=== PATIENT | male | born 1950 | race Caucasian/White ===

== ENCOUNTER 2023-05-30 20:10 | Inpatient (IN) | payer MEDICARE ==
[~2023-05-30] VITALS: Ht 170.2 cm; Wt 86.4 kg
[2023-05-30] VITALS (14 sets, daily range): BP systolic 113–138; BP diastolic 59–69
[2023-05-30 20:55] LABS: HEMOGLOBIN 15.6 g/dl (14.0-18.0); IMMATURE GRANULOCYTES 0.4 % (0.0-5.0); MEAN CELL VOLUME 90.7 fL CALC (80.0-100.0); MEAN CORPUSCULAR HGB 31.5 pG CALC (26.0-32.0); MEAN CORPUSCULAR HGB CONC 34.7 g/dL CAL (32.0-36.0); PLATELET COUNT 246 thou/uL (130-400); RED BLOOD COUNT 4.96 mill/uL (4.70-6.10); RED CELL DISTRI WIDTH 12.8 % (11.5-15.5)
[2023-05-30 21:14] LABS: ALBUMIN 4.3 g/dL (3.2-5.0); ALKALINE PHOSPHATASE 103 u/l (38-126); ANION GAP 13 (6-22 (CALC)); BILIRUBIN, TOTAL 1.4 mg/dL (0.2-1.3); BUN 19 mg/dL (8-23); BUN/CREATININE RATIO 23 (12-20 (CALC)); CARBON DIOXIDE 28 mmol/l (22-30); CHLORIDE 97 mmol/l (95-108); CREATININE 0.8 mg/dL (0.7-1.3); GFR FOR AFR.AMER. > 60 ML/MIN (>=60 (CALC)); GFR OTHER RACES > 60 ML/MIN (>=60 (CALC)); POTASSIUM 3.6 mmol/l (3.5-5.1); SGOT/AST 56 u/l (19-48); SODIUM 135 mmol/l (137-146); TOTAL PROTEIN 7.4 g/dL (6.3-8.2)
[2023-05-30 21:19] LABS: BAND 9 % (0-8)
[2023-05-30 21:20] LABS: MANUAL DIFFERENTIAL YES
[2023-05-30 21:43] LABS: AMYLASE 4219 u/l (30-110)
[2023-05-30 22:03] LABS: LIPASE 53072 u/l (23-300)
[2023-05-30 22:49] LABS: URINE BILIRUBIN - DIPSTICK Negative (NEGATIVE); URINE BLOOD DIPSTICK Negative (NEGATIVE); URINE GLUCOSE - DIPSTICK >=1000 mg/dL (NEGATIVE); URINE KETONE 15 mg/dL (NEGATIVE); URINE LEUK ESTERASE Negative (NEGATIVE); URINE NITRITE - DIPSTICK Negative (Negative); URINE PROTEIN - DIPSTICK Negative (NEG-TRACE); URINE SPECIFIC GRAVITY <=1.005; URINE UROBILINOGEN - DIPSTICK 0.2 E.U./dL (0.2)
[2023-05-30 22:51] LABS: URINE COLOR Yellow
[2023-05-31] VITALS (22 sets, daily range): BP systolic 119–152; BP diastolic 63–76
[2023-05-31] MEDS ORDERED: HYDROCHLOROT25 MG PO (03:44)
[2023-05-31] MEDS ORDERED: ATORVASTATIN CA20 MG PO (03:45)
[2023-05-31] MEDS ORDERED: GLUCOTROL XL10 MG PO (03:45)
[2023-05-31] MEDS ORDERED: COZAAR100 MG PO (04:05)
[2023-05-31] MEDS ORDERED: LIPITOR10 M1 PO (04:05)
[2023-05-31] MEDS ORDERED: JARDIANCE25 MG PO (04:06)
[2023-05-31] MEDS ORDERED: AMLODIPINE BESY10 MG PO (04:07)
[2023-05-31 10:11] LABS: HEMATOCRIT 41.8 % (39.0-50.0); MEAN CELL VOLUME 93.9 fL CALC (80.0-100.0); MEAN CORPUSCULAR HGB 31.5 pG CALC (26.0-32.0); MEAN CORPUSCULAR HGB CONC 33.5 g/dL CAL (32.0-36.0); RED BLOOD COUNT 4.45 mill/uL (4.70-6.10)
[2023-05-31 10:23] LABS: ALBUMIN 3.4 g/dL (3.2-5.0); BILIRUBIN, TOTAL 0.7 mg/dL (0.2-1.3); TOTAL PROTEIN 5.8 g/dL (6.3-8.2)
[2023-05-31 10:54] LABS: INTERNATIONAL NORMALIZED RATIO 1.2 RATIO (0.7-1.3)
[2023-05-31 14:37] LABS: ALKALINE PHOSPHATASE 66 u/l (38-126); ANION GAP 8 (6-22 (CALC)); BILIRUBIN, TOTAL 0.7 mg/dL (0.2-1.3); BUN 16 mg/dL (8-23); BUN/CREATININE RATIO 23 (12-20 (CALC)); CALCULATED LDLCHOLESTEROL 20 mg/dL (62-129 (CALC)); CARBON DIOXIDE 25 mmol/l (22-30); CHOLESTEROL HDL RATIO 1.5 (<4.4 (CALC)); CREATININE 0.7 mg/dL (0.7-1.3); GFR FOR AFR.AMER. > 60 ML/MIN (>=60 (CALC)); GFR OTHER RACES > 60 ML/MIN (>=60 (CALC)); HDL CHOLESTEROL 55 mg/dL (39.0-59.0); POTASSIUM 3.3 mmol/l (3.5-5.1); SGOT/AST 40 u/l (19-48); SODIUM 139 mmol/l (137-146); TOTAL CHOLESTEROL 83 mg/dl (0-199); TOTAL PROTEIN 5.3 g/dL (6.3-8.2); TOTAL TRIGLYCERIDES 44 mg/dl (0-149); VLDL CHOLESTROL 9 mg/dl (0-38 (CALC))
[2023-05-31 14:44] LABS: CHLORIDE 109 mmol/l (95-108)
[2023-06-01] VITALS (10 sets, daily range): BP systolic 139–157; BP diastolic 65–75
[2023-06-01 05:18] LABS: BASO% 0.1 % (0-3); HEMOGLOBIN 12.8 g/dl (14.0-18.0); LYMPH% 3.6 % (15-41); MEAN CELL VOLUME 94.1 fL CALC (80.0-100.0); MEAN CORPUSCULAR HGB 31.7 pG CALC (26.0-32.0); MEAN CORPUSCULAR HGB CONC 33.7 g/dL CAL (32.0-36.0); MONO% 5.7 % (2-13); NEUT# 22.2 thou/uL (1.82-7.42); NEUT% 89.6 % (42-76); RED BLOOD COUNT 4.04 mill/uL (4.70-6.10); RED CELL DISTRI WIDTH 13.3 % (11.5-15.5)
[2023-06-01 05:39] LABS: ALBUMIN 2.9 g/dL (3.2-5.0); ALKALINE PHOSPHATASE 71 u/l (38-126); ANION GAP 9 (6-22 (CALC)); BUN 17 mg/dL (8-23); BUN/CREATININE RATIO 23 (12-20 (CALC)); CARBON DIOXIDE 23 mmol/l (22-30); CHLORIDE 109 mmol/l (95-108); CREATININE 0.7 mg/dL (0.7-1.3); GFR FOR AFR.AMER. > 60 ML/MIN (>=60 (CALC)); GFR OTHER RACES > 60 ML/MIN (>=60 (CALC)); MAGNESIUM 1.8 mg/dL (1.6-2.3); POTASSIUM 3.1 mmol/l (3.5-5.1); SGOT/AST 35 u/l (19-48); SODIUM 138 mmol/l (137-146); TOTAL PROTEIN 5.1 g/dL (6.3-8.2)
[2023-06-01 09:48] LABS: AMYLASE 759 u/l (30-110)
[2023-06-01 10:17] LABS: LIPASE 5458 u/l (23-300)
[2023-06-02] VITALS (7 sets, daily range): BP systolic 140–158; BP diastolic 63–71
[2023-06-02 02:28] LABS: ALBUMIN 2.6 g/dL (3.2-5.0); ALKALINE PHOSPHATASE 71 u/l (38-126); AMYLASE 235 u/l (30-110); ANION GAP 12 (6-22 (CALC)); BILIRUBIN, TOTAL 0.9 mg/dL (0.2-1.3); BUN 16 mg/dL (8-23); BUN/CREATININE RATIO 25 (12-20 (CALC)); CARBON DIOXIDE 19 mmol/l (22-30); CHLORIDE 108 mmol/l (95-108); CREATININE 0.6 mg/dL (0.7-1.3); GFR FOR AFR.AMER. > 60 ML/MIN (>=60 (CALC)); GFR OTHER RACES > 60 ML/MIN (>=60 (CALC)); LIPASE 1607 u/l (23-300); POTASSIUM 3.4 mmol/l (3.5-5.1); SGOT/AST 29 u/l (19-48); SODIUM 136 mmol/l (137-146); TOTAL PROTEIN 5.1 g/dL (6.3-8.2)
[2023-06-02 02:42] LABS: BASO% 0.1 % (0-3); EOS% 0.1 % (0-8); HEMATOCRIT 35.9 % (39.0-50.0); HEMOGLOBIN 12.1 g/dl (14.0-18.0); IMMATURE GRANULOCYTES 0.8 % (0.0-5.0); LYMPH% 3.4 % (15-41); MEAN CELL VOLUME 93.7 fL CALC (80.0-100.0); MEAN CORPUSCULAR HGB 31.6 pG CALC (26.0-32.0); MEAN CORPUSCULAR HGB CONC 33.7 g/dL CAL (32.0-36.0); MONO% 6.9 % (2-13); NEUT# 18.83 thou/uL (1.82-7.42); NEUT% 88.7 % (42-76); RED BLOOD COUNT 3.83 mill/uL (4.70-6.10); RED CELL DISTRI WIDTH 13.2 % (11.5-15.5)
[2023-06-03 04:08] VITALS: BP 146/64
[2023-06-03 06:40] VITALS: BP 139/67
[2023-06-03 06:54] LABS: BASO% 0.2 % (0-3); EOS% 0.9 % (0-8); HEMOGLOBIN 12.1 g/dl (14.0-18.0); IMMATURE GRANULOCYTES 0.4 % (0.0-5.0); LYMPH% 5.7 % (15-41); MEAN CELL VOLUME 91.6 fL CALC (80.0-100.0); MEAN CORPUSCULAR HGB 31.7 pG CALC (26.0-32.0); MEAN CORPUSCULAR HGB CONC 34.6 g/dL CAL (32.0-36.0); NEUT# 15.11 thou/uL (1.82-7.42); NEUT% 82.8 % (42-76); RED BLOOD COUNT 3.82 mill/uL (4.70-6.10); RED CELL DISTRI WIDTH 13.1 % (11.5-15.5)
[2023-06-03 07:20] LABS: ALBUMIN 2.6 g/dL (3.2-5.0); ALKALINE PHOSPHATASE 77 u/l (38-126); AMYLASE 58 u/l (30-110); BILIRUBIN, TOTAL 0.8 mg/dL (0.2-1.3); BUN 14 mg/dL (8-23); BUN/CREATININE RATIO 23 (12-20 (CALC)); CHLORIDE 109 mmol/l (95-108); CREATININE 0.6 mg/dL (0.7-1.3); GFR FOR AFR.AMER. > 60 ML/MIN (>=60 (CALC)); GFR OTHER RACES > 60 ML/MIN (>=60 (CALC)); LIPASE 504 u/l (23-300); MAGNESIUM 2.1 mg/dL (1.6-2.3); SGOT/AST 24 u/l (19-48); SODIUM 135 mmol/l (137-146); TOTAL PROTEIN 5.1 g/dL (6.3-8.2)
[2023-06-03 07:22] LABS: ANION GAP 14 (6-22 (CALC)); POTASSIUM 3.2 mmol/l (3.5-5.1)
[2023-06-03 07:23] LABS: CARBON DIOXIDE 15 mmol/l (22-30)
[2023-06-03 10:56] VITALS: BP 139/64
[2023-06-03 15:15] VITALS: BP 149/76
[2023-06-03] MEDS ORDERED: OMNICEF300 MG PO (16:44)
== END 2023-06-03 17:14 | disposition home or self-care (01) | DRG 871 ==
LOC: ED 20:10 → ED-I 05-31 02:55 → ED 05-31 03:29 → MS2 05-31 03:30
PROVIDERS: Emergency Medicine; Nurse Practitioner Family; Surgery; ADMIT Internal Medicine; ATTEND Internal Medicine
DX: A41.9 Sepsis, unspecified organism (principal); J18.9 Pneumonia, unspecified organism; K85.10 Biliary acute pancreatitis without necrosis or infection; K80.10 Calculus of gallbladder with chronic cholecystitis without obstruction; I10 Essential (primary) hypertension; E11.9 Type 2 diabetes mellitus without complications; E78.00 Pure hypercholesterolemia, unspecified; Z86.718 Personal history of other venous thrombosis and embolism; Z79.84 Long term (current) use of oral hypoglycemic drugs; Z87.19 Personal history of other diseases of the digestive system; Z90.49 Acquired absence of other specified parts of digestive tract; Z20.822 Contact with and (suspected) exposure to COVID-19
CPT/HCPCS: J1650; Q9967; S0164